=== PATIENT | male | born 1980 | race Caucasian/White ===

== ENCOUNTER 2020-08-04 18:59 | Emergency (ER) | payer BC, SELFPAY ==
[2020-08-04 19:00] VITALS: BP 156/112; PULSE 123; RESP 17; TEMP 36.1; O2SAT 100; BMI 32.0
--- NOTE | 2020-08-04 19:40 | ED.VIS.UPPEX ---
History of Present Illness Chief Complaint: Bite Informant: Patient Occurred: Today - JPTA Mechanism/Context: - - dog bite Context: Sudden Onset Timing: Continuous Quality of Pain: - - sore Location: R small finger Current Severity: Mild Maximum Severity: Moderate Worsened by: palpation Relieved by: leaving alone Associated Symptoms: Negative for: Parasthesia, Weakness, Loss of Funtion Narrative: Playing with his mother's dog who is well, has had rabies shots, and was playing too rough, bit him in the finger. [id number]. Last tetanus unknown. No loss of function. Tetanus Immunization: >10 years Past Medical History - Allergies and Home Meds Allergies/Adverse Reactions: Allergies No Known Allergies Allergy (Verified 08/04/20 19:00) Primary Care Physician: NOT,DEFINED [NON-STAFF] - Past Medical History: None Lives: With Family Smoking Status: Never smoker Review of Systems General: Denies: Chills, Fever, Sweats Musculoskeletal: Reports: Extremity Pain Skin: Reports: Wounds. Denies: Rash Neurological: Denies: Headache, Weakness, Numbness Physical Exam Vital Signs/Narrative: Vital Signs Temp Pulse Resp BP Pulse Ox 08/04/20 19:00 97.0 F L 123 H 17 156/112 H 100 General: Well nourished, Well developed, - - Well-appearing no distress Extremeties: Laceration to the right small finger as noted below. Patient is able to extend fully, FDS and FDP are intact as well. Lacerations to the dorsal side. No other injuries or issues. Skin: Normal color, No rash, Trauma - 2 cm laceration dorsum of right little finger proximal phalanx, linear, clean-appearing, subcutaneous tissue visible. Neurological: Alert, Oriented x3, Cranial nerves II-XII grossly intact, Normal Strength, Normal Sensation, Normal Gait Psychological: Normal affect, Normal Mood Diagnostic/Tx/Re-eval - Medical Decision Making Patient's laceration was explored in a bloodless field, the extensor tendon is visible intact, functioning, does not appear to be injured. It is deep within the wound. The wound was cleansed thoroughly, repaired, loosely at the radial aspect of it where there is a stellate component, and he was started on prophylactic Augmentin. His tetanus was updated. All questions answered at bedside. Procedures - Lacerations R little finger Length: 2 cm Depth: Tendon Shape: Stellate Prep: Sterile Conditions, Chlorhexadine Laceration repair: Irrigated, Lidocaine with epi - 1cc of 2%, Local - in addition to topical LET Irrigated (ml): 60 Number of Sutures/[place]: 4 Suture Information: Ethilon, Simple, 5-0 ED Disposition - Plan for ED Patient: Disposition: Home or Assisted Living Diagnosis: Laceration of right little finger w/o foreign body w/o damage to nail, Open wound of right little finger due to dog bite, Tetanus-diphtheria (Td) vaccination Instructions: ED Laceration Hand, ED BITE Dog Prescriptions: Amox/Clavulanate Tablet [Augmentin Tablet] 875 mg PO Q12H #14 tab Prescription Printed Referrals: Doctor,Your [STAFF PHYSICIAN] - 10-14 Days suture removal ()
[2020-08-04] MEDS: Diphth,Pertuss(Acell),Tet Vac 0.5 ML Vial IM (19:49)
[2020-08-04] MEDS: Lidocaine/Epi/Tetracaine 50 ML 1 APPLIC TOPICAL (19:50)
[2020-08-04] MEDS: Amox/Clavulanate 875 MG Tablet PO (19:50)
[2020-08-04 21:12] VITALS: PULSE 81; RESP 16; O2SAT 99
--- NOTE | 2020-08-04 21:13 | ED.RN ---
THIS NURSE REVIEWED D/C INSTRUCTIONS WITH THE PT. PT VERBALIZED UNDERSTANDING OF INSTRUCTIONS. PT DENIES FURTHER NEEDS OR QUESTIONS AT THIS TIME.
== END 2020-08-04 21:14 | disposition home or self-care (01) ==
PROVIDERS: Emergency Provider Emergency Medicine
DX: S61.256A Open bite of right little finger without damage to nail, initial encounter (principal); W54.0XXA Bitten by dog, initial encounter; Z23 Encounter for immunization; S61.216A Laceration without foreign body of right little finger without damage to nail, initial encounter
CPT/HCPCS: 13131; 90471; 90715; 99283